=== PATIENT | male | born 1950 | race Caucasian/White ===

== ENCOUNTER 2023-12-18 18:59 | Emergency (ER) | payer MEDICARE, SELFPAY ==
[2023-12-18 19:13] VITALS: BP 150/63; PULSE 79; RESP 20; TEMP 36.4; O2SAT 97
--- NOTE | 2023-12-18 19:40 | ED.LOWEXIN ---
HPI - Extremity Injury (Lower) General Chief Complaint: Extremity Injury, Lower Stated Complaint: Right Foot Big Toe Pain Time Seen by Provider: 12/18/23 19:40 Source: patient, RN notes reviewed and old records reviewed Mode of arrival: ambulatory Limitations: no limitations History of Present Illness HPI Narrative: diabetic patient presents with complaints of right great toe redness and swelling. He reports 3-4 days ago he had a blister to the affected toe. This blister ruptured, now he has redness and swelling to the toe. He denies any fever, chills, sweats. He does report that the toe is mildly tender to the touch. He is able to ambulate without any difficulty. He has been applying Neosporin to the site with no change in symptoms. He denies any injury or trauma. Voices no other concerns or complaints at this time. Related Data Home Medications Medication Instructions Recorded Confirmed atorvastatin 40 mg tablet 40 mg PO DAILY 12/18/23 12/18/23 azathioprine 50 mg tablet 50 mg PO DAILY 12/18/23 12/18/23 gemfibrozil 600 mg tablet 600 mg PO DAILY 12/18/23 12/18/23 infliximab 100 mg intravenous 200 mg IV MONTHLY 12/18/23 12/18/23 solution (Remicade) metformin 500 mg tablet 1,000 mg PO DAILY 12/18/23 12/18/23 sulfasalazine 500 mg tablet 500 mg PO DAILY 12/18/23 12/18/23 tadalafil 20 mg tablet 20 mg PO ONCE PRN as needed 12/18/23 12/18/23 Allergies Allergy/AdvReac Type Severity Reaction Status Date / Time No Known Allergies Allergy Verified 12/18/23 19:45 Review of Systems Review of Systems: All systems reviewed & are unremarkable except as noted in HPI and below Constitutional: Constitutional: Reports no additional constitutional complaints ENT: Reports system reviewed and no additional complaints, except as documented Cardiovascular: Cardiovascular: Reports no additional cardiovascular complaints Respiratory: Respiratory: Reports no additional respiratory complaints Gastrointestinal: Gastrointestinal: Reports no additional gastrointestinal complaints Integumentary/Breasts: Skin/Breast: Reports system reviewed and no additional complaints, except as docu and Reports as per HPI PMFSH Comments At the time of my signature, I reviewed and agree with the nursing past medical, surgical, social, and family history. There is no relevant family history pertinent to the patient complaint. Exam Const: General: cooperative, no acute distress, alert and awake Orientation/consciousness: oriented to person, oriented to place and oriented to time HENMT: Head: normal to inspection Resp: Effort & Inspection: normal respiratory effort and able to speak in complete sentences Auscultation: clear to auscultation bilaterally, no crackles, no rales, no rhonchi and no wheezes Cardio: Palpation: normal PMI Rate: regular rate Rhythm: regular rhythm Heart sounds: S1 normal heart sound present and S2 normal heart sound present Skin: Other: Erythema, warmth, swelling surrounding the right great toenail, extending proximally, almost the entire dorsal aspect of toe is involved. Cellulitic in appearance Neuro: General: oriented to person, oriented to place and oriented to time Cranial nerves: Yes CN's II-XII intact bilaterally Psych: Appearance: grossly normal Thought process: Normal thought process present Insight: Good insight present (Psych) Judgement: Good judgement present (Psych) Course Course Level of Care: Express Care Visit Vital Signs Vital signs: Vital Signs Temperature 97.6 F 12/18/23 19:13 Pulse Rate 79 12/18/23 19:13 Respiratory Rate 20 12/18/23 19:13 Blood Pressure 150/63 H 12/18/23 19:13 Pulse Oximetry 97 12/18/23 19:13 Oxygen Delivery Room Air 12/18/23 19:13 Temperature 97.6 F 12/18/23 19:13 Pulse Rate 79 12/18/23 19:13 Respiratory Rate 20 12/18/23 19:13 Blood Pressure 150/63 H 12/18/23 19:13 Pulse Oximetry 97 12/18/23 19:13 Oxygen Delivery Room Air
== END 2023-12-18 19:50 | disposition home or self-care (01) ==
PROVIDERS: Emergency Provider Nurse Practitioner Family; PCP Physician Assistant Medical
DX: L03.031 Cellulitis of right toe (principal); E78.00 Pure hypercholesterolemia, unspecified; I10 Essential (primary) hypertension; K21.9 Gastro-esophageal reflux disease without esophagitis; M06.9 Rheumatoid arthritis, unspecified; E11.9 Type 2 diabetes mellitus without complications; Z85.46 Personal history of malignant neoplasm of prostate; Z90.79 Acquired absence of other genital organ(s)
CPT/HCPCS: 99203; G0463